=== PATIENT | female | born 1965 | race Caucasian/White ===

== ENCOUNTER 2018-03-03 21:59 | Emergency (ER) | payer OTHER ==
[~2018-03-03] VITALS: Ht 170.2 cm; Wt 68.0 kg
[~2018-03-03 21:59] MED LIST: AMOXICILLIN500 MG; CEFADROXIL500 MG PO; PRELONE15 MG/5 ML PO; ROBITUSSIN PO
[2018-03-03] MEDS ORDERED: ATACAND4 MG PO (22:23)
[2018-03-03] MEDS ORDERED: XOPENEX0.63 MG/3 IH (22:24)
[2018-03-04] MEDS ORDERED: ORPHENADRINE C100 MG PO (04:17)
[2018-03-04] MEDS ORDERED: KETO10TA2 PO (04:17)
== END 2018-03-04 04:43 | disposition home or self-care (01) ==
LOC: ER 21:59
DX: R07.89 Other chest pain (principal); M94.0 Chondrocostal junction syndrome [Tietze]